=== PATIENT | male | born 1990 | race Caucasian/White ===

== ENCOUNTER 2022-11-02 10:56 | Emergency (ER) | payer OTHER, SELFPAY ==
[2022-11-02 11:09] VITALS: BP 158/91; PULSE 76; RESP 16; TEMP 36.9; O2SAT 100
--- NOTE | 2022-11-02 11:16 | ED.BACK ---
HPI - Back Pain/Injury General Chief Complaint: Back Pain/Injury Stated Complaint: BACK INJURY Time Seen by Provider: 11/02/22 11:16 Source: patient Mode of arrival: ambulatory Limitations: no limitations History of Present Illness HPI Narrative: 32-year-old male presenting for complaint of low back pain for 2 days. He states while exercising and doing lifts, he ?felt a pop. The pain has increased since then, intermittent, worse with certain movements and walking. Pain is throbbing. Rates 4/10 at rest. Taking ibuprofen and Tylenol and used ice packs. States today he returned to the gym for stretching, and reports some improvement. Denies pain radiating into the hips or legs, numbness, tingling, weakness of the lower extremities, or change in gait, saddle paresthesia or loss of bowel or bladder. Related Data Allergies Allergy/AdvReac Type Severity Reaction Status Date / Time Penicillins Allergy Unknown Hives Verified 11/02/22 11:07 Review of Systems Review of Systems: CONSTITUTIONAL: Denies body aches, fever, chills EYES: Denies visual changes CARDIOVASCULAR: Denies chest pain, palpitations, or edema. RESPIRATORY: Denies cough or dyspnea. GASTROINTESTINAL: Denies abdominal pain, nausea, vomiting, or diarrhea. SKIN: Denies rash, itching, or wounds. MUSCULOSKELETAL: reports back pain NEUROLOGIC: Denies headache, numbness, tingling, or weakness. All systems reviewed & are unremarkable except as noted in HPI and below PMFSH Past Medical History Medical History (Updated 11/02/22 @ 11:29 by Mely Pierson APRN) No pertinent past medical history Social History Social History Alcohol intake: current Comments At time of signature, I have reviewed and agree with nursing past medical, surgical, social and family history unless otherwise noted. Please see nursing chart for further information. There is no relevant family history pertinent to the presenting complaint Exam Narrative: GENERAL: Well-appearing, well-nourished, and in no acute distress. HEAD: Normocephalic, atraumatic. EYES: conjunctivae clear NECK: Supple. full ROM CHEST: Speaks in full sentences. No respiratory distress. HEART: Regular rate and rhythm. Normal and equal peripheral pulses. MUSC: Pain is reported to left paraspinal L4-5 area, nontender with palpation. No Vertebral point tenderness. BLEs with normal strength and sensation, normal range of motion. No ecchymosis, No open wounds or obvious deformity; alignment normal, pulse palpable and equal bilaterally, skin warm, dry, pink. Capillary refill less than 3 seconds. Gait steady. SKIN: Warm, dry, no rash. NEURO: Alert and oriented x3. Course Course Emergency Course: Patient is aware of diagnosis, understands and agrees to treatment plan. Anticipatory guidance given. Patient agrees to follow-up as directed and is aware of reasons to seek care at the emergency department. Portions of this record may have been created with voice recognition software Level of Care: Express Care Visit Vital Signs Vital signs: Vital Signs Temperature 98.4 F 11/02/22 11:09 Pulse Rate 76 11/02/22 11:09 Respiratory Rate 16 11/02/22 11:09 Blood Pressure 158/91 H 11/02/22 11:09 Pulse Oximetry 100 11/02/22 11:09 Temperature 98.4 F 11/02/22 11:09 Pulse Rate 76 11/02/22 11:09 Respiratory Rate 16 11/02/22 11:09 Blood Pressure 158/91 H 11/02/22 11:09 Pulse Oximetry 100 11/02/22 11:09 Reviewed MDM - Back Pain/Injury MDM Narrative Medical decision making narrative: Discussed physical exam findings. Reviewed Rx's. Advised supportive measures and s/s to go to the ER. Pt is stable and appropriate for outpt treatment and follow up with pcp. Differential Diagnosis Differential diagnosis: Likely lumbar radiculopathy, sciatica, strain of lumbar region, renal colic, pyelonephritis and discitis Discharge Plan Discharg
== END 2022-11-02 11:28 | disposition home or self-care (01) ==
PROVIDERS: Emergency Provider Nurse Practitioner Family; PCP Student in an Organized Health Care Education/Training Program
DX: S39.012A Strain of muscle, fascia and tendon of lower back, initial encounter (principal); X50.3XXA Overexertion from repetitive movements, initial encounter; Y93.B3 Activity, free weights
CPT/HCPCS: 99203; G0463

== ENCOUNTER 2024-03-20 11:07 | Emergency (ER) | payer OTHER, SELFPAY ==
[2024-03-20 11:17] VITALS: BP 140/75; PULSE 75; RESP 16; TEMP 37.1; O2SAT 100
--- NOTE | 2024-03-20 11:52 | ED_ITS ---
HPI - Back Pain/Injury General Chief Complaint: Back Pain/Injury Stated Complaint: Back Pain Time Seen by Provider: 03/20/24 11:42 Source: patient and RN notes reviewed Mode of arrival: ambulatory Limitations: no limitations History of Present Illness HPI Narrative: Patient presents today complaining of left-sided low back pain. He was squatting at the gym yesterday with some weight on a bar bowel experienced a pop and severe pain in his left low back. Pain worsened through the day in spite of ice and Tylenol. Pain radiates to the left lateral knee with some mild tingling. Denies loss of bowel and bladder control or numbness. Currently rates his pain 7/10. He also took 1 leftover Flexeril from a previous prescription without much relief. Related Data Allergies Allergy/AdvReac Type Severity Reaction Status Date / Time Penicillins Allergy Mild Hives Verified 03/20/24 11:10 Review of Systems Review of Systems: CONSTITUTIONAL: Denies body aches, fever, chills, or sweats. EYES: Denies visual changes, redness, or discharge. ENT: Denies rhinorrhea, congestion, sore throat, or otalgia. CARDIOVASCULAR: Denies chest pain, palpitations, or edema. RESPIRATORY: Denies cough or dyspnea. GASTROINTESTINAL: Denies abdominal pain, nausea, vomiting, or diarrhea. GENITOURINARY: Denies dysuria or hematuria. SKIN: Denies rash, itching, or wounds. MUSCULOSKELETAL: Back pain NEUROLOGIC: Denies headache, numbness, tingling, or weakness. PSYCH: Denies depression or anxiety. PMFSH Past Medical History Medical History (Reviewed 03/20/24 @ 11:54 by Jazmin Tapia, [facility], ) No pertinent past medical history Social History Social History (Reviewed 03/20/24 @ 11:54 by Jazmin Tapia, [facility], ) Alcohol intake: current Comments At time of signature, I have reviewed and agree with nursing past medical, surg ical, social and family history unless otherwise noted. Please see nursing chart for further information. There is no relevant family history pertinent to the presenting complaint Exam Narrative: GENERAL: Well-appearing, well-nourished, and in no acute distress. HEAD: Normocephalic, atraumatic. EYES: EOMI. No redness or drainage. Conjunctivae normal. ENT: Mucous membranes pink and moist. NECK: Normal AROM. CHEST: No respiratory distress. MUSCULOSKELETAL: No bony tenderness of the thoracic or lumbar spine. No bilateral thoracic or lumbar spine paraspinal muscle tenderness or SI tenderness. Patient localizes his pain to the left lower lumbar paraspinal musculature. Distal sensation intact. Saddle sensation intact. 5/5 strength in BLE. EXTREMITIES: Normal range of motion. No edema. SKIN: Warm, dry, no rash. Capillary refill normal. Normal skin turgor. NEURO: No focal deficits. Alert and oriented x3. Gait steady. PSYCH: Normal affect. No signs of depression or anxiety. Course Course Level of Care: Express Care Visit Vital Signs Vital signs: Vital Signs Temperature 98.8 F 03/20/24 11:17 Pulse Rate 75 03/20/24 11:17 Respiratory Rate 16 03/20/24 11:17 Blood Pressure 140/75 03/20/24 11:17 Pulse Oximetry 100 03/20/24 11:17 Temperature 98.8 F 03/20/24 11:17 Pulse Rate 75 03/20/24 11:17 Respiratory Rate 16 03/20/24 11:17 Blood Pressure 140/75 03/20/24 11:17 Pulse Oximetry 100 03/20/24 11:17 Reviewed MDM - Back Pain/Injury MDM Narrative Medical decision making narrative: Patient will be started on some methocarbamol, prednisone, and meloxicam for his back strain. He is having no bony tenderness or neurovascular deficit. Recommend PCP follow-up in 1 week if symptoms are not improving. Anticipatory guidance given. ED precautions given. Differential Diagnosis Differential diagnosis: Likely lumbar radiculopathy, sciatica and strain of lumbar region Critical Care Time Critical Care Time Critical Care Time: No Discharge Plan Discharge Clinical Impression: Strain of lumbar region Qualifiers: Encounter type: initial encounter Qualified Code(s): S39.012A - Strain of muscle, fascia and tendon of lower back, initial encounter Patient Disposition: Home, Self-Care Condition: Stable Instructions: Low Back Strain (ED), Lower Back Exercises (ED) Additional Instructions: Please take all medications as prescribed. Do not drive within 6 hours of taking the methocarbamol as it can make you drowsy. Follow-up with your PCP in 1 week if symptoms are not improving. Go to the ER immediately if symptoms worsen to include numbness in the legs or genitalia, loss of bowel or bladder control. Your blood pressure was elevated above 120/80 today at Urgent Care. This puts you above the threshold for follow up. Please schedule a followup visit with your personal physician as soon as possible, for further evaluation and treatment. Even blood pressure exceeding 120/80 may indicate pre-hypertension. Patient Language: Macedonian Prescriptions: New prednisone 50 mg tablet 50 mg PO DAILY 5 Days Qty: 5 0RF meloxicam 15 mg tablet 15 mg PO DAILY Qty: 20 0RF methocarbamol 750 mg tablet 750 mg PO QID PRN (Reason: muscle spasm) Qty: 30 0RF No Action cyclobenzaprine 10 mg tablet 10 mg PO TID PRN (Reason: muscle spasm) Qty: 12 0RF ibuprofen 800 mg tablet 800 mg PO TID PRN (Reason: pain) Qty: 30 0RF Follow-up/Referrals: Vanessa,DO Cruz [Primary Care Provider] - Time of Disposition: 11:58
== END 2024-03-20 12:00 | disposition home or self-care (01) ==
PROVIDERS: Emergency Provider Nurse Practitioner; PCP Student in an Organized Health Care Education/Training Program
DX: S39.012A Strain of muscle, fascia and tendon of lower back, initial encounter (principal); X50.0XXA Overexertion from strenuous movement or load, initial encounter
CPT/HCPCS: 99213; G0463

== ENCOUNTER 2024-12-30 14:01 | Outpatient (CLI) | payer OTHER, SELFPAY ==
--- NOTE | ~2024-12-30 | XR_ITS ---
XR lumbar spine min 4V Indication: CHRONIC LT SIDED LBP Comparison: None Findings: Grade 1 anterolisthesis L4 on L5, no fracture identified. No subluxation flexion and extension. Moderate loss of disc at L4-5. Soft tissues unremarkable Impression: No acute abnormality. Reviewed, dictated and finalized at location P. [facility] A[facility] Impression: No acute abnormality.
== END 2024-12-30 14:02 | disposition home or self-care (01) ==
LOC: MICIMG 14:03
PROVIDERS: PCP Student in an Organized Health Care Education/Training Program; Visit Provider Chiropractor
DX: M54.50 Low back pain, unspecified (principal)
CPT/HCPCS: 72110